=== PATIENT | male | born 1970 | race Caucasian/White ===

== ENCOUNTER 2020-06-14 12:06 | Emergency (ER) | payer OTHER, SELFPAY ==
--- NOTE | ~2020-06-14 | XR_ITS ---
XR hand LT min 3V 06/14/2020 13:07 INDICATION: Puncture wound to base of the thumb PROCEDURE: 4 views left hand COMPARISON: No prior studies for comparison. FINDINGS: Fracture, dislocation or subluxation is not identified. The soft tissues appear within norm al limits. No foreign bodies are identified. IMPRESSION: 1: NO ACUTE BONE OR JOINT ABNORMALITY IDENTIFIED. Reviewed, dictated and finalized at location A.
[2020-06-14 12:13] VITALS: BP 131/62; PULSE 76; RESP 18; TEMP 36.2; O2SAT 98
[2020-06-14] MEDS: TETANUS,DIPHTHERIA,AC PERTUSSIS ADULT (0.5 ML) BOOSTRIX IM (12:46)
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
[2020-06-14 13:16] VITALS: TEMP 36.2
[2020-06-14] MEDS: CEPHALEXIN 500 MG CAPSULE PO (13:45)
[2020-06-14 13:52] VITALS: BP 108/58; PULSE 73; RESP 18; O2SAT 95
== END 2020-06-14 13:54 | disposition home or self-care (01) ==
PROVIDERS: Emergency Provider Emergency Medicine; PCP Family Medicine
DX: S61.432A Puncture wound without foreign body of left hand, initial encounter (principal); W45.8XXA Other foreign body or object entering through skin, initial encounter; Z23 Encounter for immunization; E11.9 Type 2 diabetes mellitus without complications
CPT/HCPCS: 73130; 90471; 90715; 99283; A9270

== ENCOUNTER 2020-06-14 21:57 | Emergency (ER) | payer OTHER, SELFPAY ==
[2020-06-14 21:59] VITALS: BP 146/70; PULSE 67; RESP 18; TEMP 36.2; O2SAT 98
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
[2020-06-14 23:59] VITALS: BP 127/81; PULSE 69; RESP 19; O2SAT 99
== END 2020-06-15 | disposition home or self-care (01) ==
PROVIDERS: Emergency Provider Emergency Medicine; PCP Family Medicine
DX: S61.412A Laceration without foreign body of left hand, initial encounter (principal); W45.8XXA Other foreign body or object entering through skin, initial encounter; E11.9 Type 2 diabetes mellitus without complications
CPT/HCPCS: 12002; 99282

== ENCOUNTER 2020-06-18 11:51 | Emergency (ER) | payer OTHER, SELFPAY ==
[2020-06-18 13:01] VITALS: BP 132/82; PULSE 87; RESP 18; TEMP 36.7; O2SAT 97
--- NOTE | 2020-06-18 14:09 | ED.WOUNDLAC ---
HPI - Wound/Laceration General Chief Complaint: Wound/Laceration Stated Complaint: left palm laceration Time Seen by Provider: 06/18/20 12:39 Source: patient Mode of arrival: ambulatory Limitations: no limitations History of Present Illness HPI narrative: Patient presents with chief complaint of bleeding and suture site from a knife wound that was sutured on Monday. Patient states that he has been taking his oral antibiotics appropriately. He reports increased swelling to the area which is causing some tingling and numbness to his left thumb. Patient states that earlier he had some bleeding from 1 of the sutures that was running down his arm so he presented to the emergency department. Patient denies any fever, chills, nausea, vomiting, diarrhea or any other emergent symptoms. Related Data Allergies Allergy/AdvReac Type Severity Reaction Status Date / Time No Known Allergies Allergy Verified 06/14/20 22:07 Review of Systems Review of Systems: Narrative: CONSTITUTIONAL: Denies fever, chills, or sweats. EYES: Denies visual changes, redness, or discharge. ENT: Denies rhinorrhea, congestion, sore throat, or otalgia. CARDIOVASCULAR: Denies chest pain, palpitations, or edema. RESPIRATORY: Denies cough or dyspnea. GASTROINTESTINAL: Denies abdominal pain, nausea, vomiting, or diarrhea. GENITOURINARY: Denies dysuria or hematuria. SKIN: Reports suture laceration denies rash or itching. MUSCULOSKELETAL: Denies back pain, joint pain, or myalgia. NEUROLOGIC: Denies headache, numbness, dizziness, or weakness. PSYCHIATRIC: Denies anxiety or depression. [facility] Social History Social History Substance use: never Gender identity (if verbalized by the patient): Male Exam Narrative: Exam Narrative: GENERAL: Well-appearing, well-nourished, and in no acute distress. HEAD: Normocephalic, atraumatic. EYES: PERRLA and EOMI. ENT: Nares clear, no rhinorrhea or epistaxis. Mucous membranes moist. NECK: Supple. No adenopathy or masses. CHEST: Speaking in clear sentences without tachypnea. No respiratory distress. EXTREMITIES: Normal range of motion. No edema. SKIN: There are 4 sutures placed to base of left thumb, there is some echymosis and underling hematoma. It is not erythematous, abnormally warm , or any purulent drainage. Very small drop of blood at one of the suture points. Lacerations healing well, but not yet ready for sutures to be removed. Warm, dry, no rash. NEURO: No focal deficits. Alert and oriented x3. PSYCH: Normal mood and affect. Course Vital Signs Vital signs: Vital Signs Temperature 98.0 F 06/18/20 13:01 Pulse Rate 87 06/18/20 13:01 Respiratory Rate 18 06/18/20 13:01 Blood Pressure 132/82 06/18/20 13:01 Pulse Oximetry 97 06/18/20 13:01 Temperature 98.0 F 06/18/20 13:01 Pulse Rate 87 06/18/20 13:01 Respiratory Rate 18 06/18/20 13:01 Blood Pressure 132/82 06/18/20 13:01 Pulse Oximetry 97 06/18/20 13:01 MDM - Wound/Laceration MDM Narrative Medical decision making narrative: There is not any signs of acute infection to the area. There does appear to be underlying hematoma. Patient still has sensation, range of motion and appropriate cap refills of the left thumb. There is no purulent drainage from the wound sites excessive heat or erythema. Appears to be hematoma under area patient encouraged to apply cool compress to allow the body to reabsorb hematoma and elevate and apply light pressure dressing to area. Patient instructed to return to emergency department for suture removal as previously instructed, to continue his antibiotics and return to emergency department if he develops any emergent symptoms. Area was cleaned and light pressure dressing applied. Differential Diagnosis Differential diagnosis: Likely laceration, abscess, abrasion, avulsion of skin and other (Cellulitis, wound dehiscence) Discharge Plan Discharge Clin
== END 2020-06-18 14:27 | disposition home or self-care (01) ==
PROVIDERS: Emergency Provider Emergency Medicine; PCP Family Medicine
DX: Z48.01 Encounter for change or removal of surgical wound dressing (principal); S60.012D Contusion of left thumb without damage to nail, subsequent encounter; W26.0XXD Contact with knife, subsequent encounter
CPT/HCPCS: 99282

== ENCOUNTER 2021-03-07 22:58 | Inpatient (IN) | payer OTHER, SELFPAY ==
--- NOTE | ~2021-03-07 | XR_ITS ---
EXAMINATION: XR chest 2V EXAM DATE: 03/07/2021 23:31 INDICATION: Left-sided chest pain radiating down left arm. TECHNIQUE: Frontal and lateral projections of the chest obtained and reviewed. There is no prior brigitte dy for comparison. FINDINGS: The lungs are clear. There are no pleural effusions. The cardiomediastinal silhouette is within normal limits. There is no pneumothorax suspected. The bones and soft tissues are unremarkab le. IMPRESSION: No acute cardiopulmonary findings. Reviewed, dictated and finalized at location A.
[2021-03-07 23:04] VITALS: BP 181/66; PULSE 87; RESP 18; TEMP 36.3; O2SAT 97
--- NOTE | 2021-03-07 23:06 | ECG_ITS ---
Measurements Intervals [place] Rate: 88 P: [place]: 0 QRS: 38 QRSD: 87 T: 59 QT: 361 QTc: 439 Interpretive Statements SINUS RHYTHM FREQUENT ATRIAL PREMATURE COMPLEXES BORDERLINE ST ABNORMALITY- ANTERIOR LEADS ABNORMAL ECG Electronically Signed On 03-08-2021 7:17:20 CDT by Alen Schroeder D.O.
[2021-03-07 23:22] LABS: Basophils Percent Auto 0.4 % (0.2-1.2); Eosinophils Absolute Auto 0.5 K/mm3 (0-0.3); Eosinophils Percent Auto 5.8 % (0-4.4); Hematocrit 44.9 % (42.0-52.0); Hemoglobin 15.8 g/dL (14.0-18.0); Immature Granulocyte Absolute 0.04 K/mm3 (0.00-0.031); Immature Granulocyte Percent A 0.5 % (0-0.5); Lymphocytes Absolute Auto 2.07 K/mm3 (0.9-3.2); Lymphocytes Percent Auto 26.7 % (18.3-44.2); Mean Corpuscular HGB Conc 35.2 g/dl (32-36); Mean Corpuscular Hemoglobin 31.3 pg (26-34); Mean Corpuscular Volume 88.9 fl (80-100); Monocytes Absolute Auto 0.7 K/mm3 (0.1-0.6); Monocytes Percent Auto 8.5 % (2.6-8.5); Neutrophils Absolute Auto 4.5 K/mm3 (1.3-6.7); Neutrophils Percent Auto 58.1 % (45.5-73.1); Platelet Count Result 213 k/mm3 (150-375); Red Blood Count 5.05 M/mm3 (4.6-6.20); Red Cell Distribution Width 13.2 % (11.5-14.5); White Blood Count 7.7 K/mm3 (4.5-10.0)
[2021-03-07 23:36] LABS: INR 0.9; Prothrombin Time 12.9 Seconds (11.1-14.7)
[2021-03-07 23:37] LABS: Anion Gap 9 mmol/L (8-16); Blood Urea Nitrogen 21 mg/dL (9-20); Calcium 9.2 mg/dL (8.4-10.2); Carbon Dioxide 25 mmol/L (22-30); Chloride 102 mmol/L (98-107); Estimated Glomerular Filt Rate > 60; Glucose 256 mg/dL (75-110); Partial Thromboplastin Time 28.4 SECONDS (22.3-36.8); Potassium 3.7 mmol/L (3.4-5.0); Sodium 136 mmol/L (137-145)
[2021-03-07 23:49] LABS: Troponin I < 0.012 ng/mL (0.000-0.034)
[2021-03-08] VITALS (20 sets, daily range): BP systolic 113–176; BP diastolic 46–85; PULSE 70–103; RESP 15–26; TEMP 36–36.9; O2SAT 92–99; BMI 31.9
--- NOTE | 2021-03-08 00:14 | ED.CHESTPAIN ---
HPI - Chest Pain General Chief Complaint: Chest Pain Stated Complaint: Chest pain, L arm pain Time Seen by Provider: 03/07/21 23:57 Source: RN notes reviewed History of Present Illness HPI narrative: Patient presents to emergency department from home for chest pain. Patient states pain began approximate hour prior to arrival. Pain is located over the left side of the chest with radiation to the left arm and up into the neck described as a pressure. States was associated shortness of breath. States it was worse with walking up the stairs and states that the pain is now improved he denies any previous cardiac history denies any fevers or chills abdominal pain Related Data Allergies Allergy/AdvReac Type Severity Reaction Status Date / Time gemifloxacin [From Factive] Allergy Rash Verified 03/08/21 00:07 Review of Systems Review of Systems: Narrative: Gen.: Denies fevers or chills ENT: Denies congestion Respiratory: Reports shortness of breath CV: See HPI GI: Denies abdominal pain nausea, emesis or diarrhea denies burning, urgency, frequency or hematuria Musculoskeletal: Denies back pain or muscle pain Neuro: Denies numbness, tingling, weakness or focal weakness Skin: Denies rash Except as documented, all other systems reviewed and negative PMFSH Past Medical History Medical History (Updated 03/08/21 @ 01:58 by Facundo Cade DO) Familial hypercholesterolemia History of diabetes mellitus Social History Social History Substance use: never Gender identity (if verbalized by the patient): Male Exam Narrative: Exam Narrative: APPEARANCE: No acute distress, nontoxic, resting in bed EYES: EOMI HEENT: Normocephalic, atraumatic, OMM RESPIRATORY: No respiratory distress Clear to auscultation bilaterally with no rhonchi wheezing or rales. CARDIOVASCULAR: Regular rate and rhythm without murmurs rubs or gallops. ABDOMINAL: Soft, nontender, nondistended, no rebound or guarding MUSCULOSKELETAl: Moves all extremities. No clubbing, cyanosis or edema. NEURO: Awake and alert. Following commands, speech normal, no focal deficits SKIN:: Warm, dry. No rashes lesions or abrasions PSYCHIATRIC: Normal affect/mood, Course Course Emergency Course: Discussed with Dr. Bean presentation work-up agrees with consult at this time. Agrees with plan for aspirin with no further anticoagulation at this time Dr. Garza presentation work-up agrees with admission Discussed with patient and family results of workup and diagnosis. Discussed need for admission. Patient and family understand and agree to current treatment plan Vital Signs Vital signs: Vital Signs Temperature 97.4 F L 03/07/21 23:04 Pulse Rate 87 03/07/21 23:04 Respiratory Rate 18 03/07/21 23:04 Blood Pressure 181/66 H 03/07/21 23:04 Pulse Oximetry 97 03/07/21 23:04 Temperature 97.4 F L 03/07/21 23:04 Pulse Rate 82 03/08/21 00:43 Respiratory Rate 26 H 03/08/21 00:43 Blood Pressure 156/75 H 03/08/21 00:31 Pulse Oximetry 97 03/08/21 00:43 MDM - Chest Pain Lab Data Result diagrams: 03/07/21 23:15 03/07/21 23:15 Labs: Lab Results 03/07/21 03/07/21 03/07/21 Range/Units 23:15 23:15 23:15 WBC 7.7 (4.5-10.0) K/mm3 RBC 5.05 (4.6-6.20) M/mm3 Hgb 15.8 (14.0-18.0) g/dL Hct 44.9 (42.0-52.0) % MCV 88.9 (80-100) fl MCH 31.3 (26-34) pg MCHC 35.2 (32-36) g/dl RDW 13.2 (11.5-14.5) % Plt Count 213 (150-375) k/mm3 MPV 11.0 H (7.4-10.4) fl Immature Gran % (Auto) 0.5 (0-0.5) % Neut % (Auto) 58.1 (45.5-73.1) % Lymph % (Auto) 26.7 (18.3-44.2) % [place] % (Auto) 8.5 (2.6-8.5) % Eos % (Auto) 5.8 H (0-4.4) % Baso % (Auto) 0.4 (0.2-1.2) % Lymph # (Auto) 2.07 (0.9-3.2) K/mm3 [place] # (Auto) 0.7 H (0.1-0.6) K/mm3 Eos # (Auto) 0.5 H (0-0.3) K/mm3 Baso # (Auto) 0.0 (0.0-0.1) K/mm3
--- NOTE | 2021-03-08 00:15 | ECG_ITS ---
Measurements Intervals [place] Rate: 82 P: 35 [place]: 174 QRS: 15 QRSD: 94 T: 40 QT: 366 QTc: 429 Interpretive Statements SINUS RHYTHM ATRIAL PREMATURE COMPLEXES BASELINE ARTIFACT- I, II, III, AVF, V1, V3-V6 BORDERLINE ECG Electronically Signed On 03-08-2021 7:18:26 CDT by Alen Schroeder D.O.
[2021-03-08] MEDS: ASPIRIN 81 MG CHEWABLE TABLET 324 MG PO (00:43)
[2021-03-08] MEDS: MORPHINE SULFATE (*CRX) 2 MG/ML INJ IV PUSH (01:28)
[2021-03-08 02:41] LABS: Troponin I < 0.012 ng/mL (0.000-0.034)
--- NOTE | 2021-03-08 02:45 | ADMGEN ---
This patient, Manfred Bautista, was admitted to IMU Room 206-01. Patient/family oriented to hospital policies and general routines including ID bracelet, bed and alarms, visiting hours, pain management, procedures, bathroom and other care routines, personal items, smoking policy, room service/diet, and visiting hours. Information on how to activate the Rapid Response Team has been discussed. Patient/Family are encouraged to report perceived risks to care and to ask questions if they do not understand what they are told or what they should do.
[2021-03-08 03:27] LABS: Glucose Point of Care 323 mg/dl (65-105)
[2021-03-08 05:46] LABS: Troponin I < 0.012 ng/mL (0.000-0.034)
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
[2021-03-08] MEDS: ATORVASTATIN 20 MG TABLET PO (08:55)
[2021-03-08 09:47] LABS: Alanine Aminotransferase 20 U/L (4-50); Albumin Level 3.7 g/dL (3.5-5.1); Alkaline Phosphatase 39 U/L (38-126); Anion Gap 7 mmol/L (8-16); Aspartate Amino Transferase 20 U/L (17-59); Bilirubin,Total 1.6 mg/dL (0.2-1.3); Blood Urea Nitrogen 15 mg/dL (9-20); Carbon Dioxide 25 mmol/L (22-30); Chloride 104 mmol/L (98-107); Cholesterol 117 mg/dL (0-200); Estimated CRCL calculation 130 ml/min; Estimated Glomerular Filt Rate > 60; Glucose 210 mg/dL (75-110); HDL Direct 33 mg/dL; Potassium 4.1 mmol/L (3.4-5.0); Sodium 136 mmol/L (137-145); Triglycerides 62 mg/dL (<150)
[2021-03-08 09:49] LABS: LDL Cholesterol Direct 69 mg/dL
[2021-03-08] MEDS: ASPIRIN 81 MG CHEWABLE TABLET PO (10:10)
[2021-03-08 11:46] LABS: Free T4 Free Thyroxine Reflex 0.97 ng/dL (0.78-2.19)
[2021-03-08] MEDS: INSULIN ASPART (*BKC) 100 UNITS/ML SUB-Q ×2 (12:42→18:18)
[2021-03-08 13:10] LABS: Glucose Point of Care 282 mg/dl (65-105)
--- NOTE | 2021-03-08 14:01 | PM.CNCAR ---
Assessment and Plan Assessment and plan (1) Chest pain: Code(s): R07.9 - Chest pain, unspecified Status: Acute Assessment and Plan: Exertional chest pain x 2-3 weeks. Associated symptoms of arm pain, neck pain, jaw pain, shortness of breath. Concern for ischemia. -Will pursue ischemic evaluation with left heart catheterization tomorrow. (2) Familial hypercholesterolemia: Code(s): E78.01 - Familial hypercholesterolemia Status: Acute Assessment and Plan: On statin. Lipid panel repeated this morning. HDL 33, LDL 69, total cholesterol 117, triglycerides 62. Continue current statin dose. Monitor as outpatient. (3) Elevated blood pressure reading: Code(s): R03.0 - Elevated blood-pressure reading, without diagnosis of hypertension Status: Acute Assessment and Plan: Scattered elevated measurements - most elevated reading upon presentation to the ED. BP more controlled today with no pharmacologic intervention. Will continue to monitor and initiate antihypertensive if necessary. History of Present Illness History of Present Illness Consult date/time: 03/08/21 14:01 Requesting physician: Facundo Cade DO Consult reason: chest pain Reason For Visit: chest pain Narrative: Date of service 2020: cardiology consultation for chest pain. This is a 50-year-old male with a past medical history of hyperlipidemia and diabetes. He presented to the emergency last night with complaints of chest pain which he has been experiencing for the past 2-3 weeks. He states that for the last couple of weeks he has experienced these episodes of chest pain approximately 4-5 times per week. 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 He says that he took a break from his work and the pain subsided with rest. Since the first occurrence of chest pain the patient states that all subsequent occurrences have been associated with exertion. Last night, he was ascending the stairs in his home when the chest pain began. He says that he laid down in order to alleviate the pain. He also notes that he had some left arm pain and numbness. He also says that he has had associated shortness of breath, neck pain, jaw pain. This particular episode lasted longer than previous episodes and was more intense with patient rating the pain at a 6/10. He states that the pain is sharp. Patient states that by the time he reached the emergency department and was in the waiting room the pain had improved but not completely subsided. Currently, he states that he is feeling mild pressure in his chest that just began while I was conducting this interview. He does not have any associated symptoms at this time. He denies any type of cardiac history but does state that he had a stress test performed about 4 years ago as he was having some upper abdominal pain that turned out to be cholecystitis. He states that the stress test was done in order to rule out any cardiac etiology and was normal. Review of Systems Review of Systems: All systems reviewed & are unremarkable except as noted in HPI and below Constitutional: Constitutional: Denies fatigue and Denies weakness Eyes: Eyes: Denies blurry vision ENT: Reports Normal hearing present Cardiovascular: Cardiovascular: Reports chest pain, Denies lightheadedness and Denies palpitations Respiratory: Respiratory: Reports no additional respiratory complaints, Denies dyspnea and Reports dyspnea on exertion Gastrointestinal: Gastrointestinal: Denies abdominal pain and Denies diarrhea Musculoskeletal: Musculoskeletal: Reports neck pain Neurologic: Denies headache(s) and Reports numbness Endocrine: Endocrine: Denies fatigue Hematologic/Lymphatic: Hematologic/Lymphatic: Denies easy bleeding and Denies easy bruising [facility] Past Medical History Medical History Familial hyperchol
[2021-03-08 14:14] LABS: Total Triiodothyronine (T3) 1.34 NG/ML (0.97-1.69)
[2021-03-08] MEDS: ACETAMINOPHEN 325 MG TABLET 650 MG PO (16:05)
[2021-03-08] MEDS: INSULIN GLARGINE (*BKC) 100 UNITS/ML 30 UNITS SUB-Q (16:05)
[2021-03-08 16:57] LABS: Glucose Point of Care 303 mg/dl (65-105)
--- NOTE | 2021-03-08 17:46 | ECG_ITS ---
Measurements Intervals [place] Rate: 93 P: 55 AK: 175 QRS: 19 QRSD: 89 T: 43 QT: 349 QTc: 436 Interpretive Statements SINUS RHYTHM FREQUENT ATRIAL PREMATURE COMPLEXES ABNORMAL ECG Electronically Signed On 03-09-2021 7:11:08 CDT by Alen Schroeder D.O.
[2021-03-08] MEDS: NITROGLYCERIN SL 0.4 MG TABLET SUBLINGUAL (17:57)
[2021-03-08 19:04] LABS: Troponin I 0.013 ng/mL (0.000-0.034)
[2021-03-08] MEDS: ENOXAPARIN 100 MG/ML SYRINGE 98 MG SUB-Q (19:35)
--- NOTE | 2021-03-08 19:41 | PC.NURSE ---
Patient refused second dose of Nitro stating his pain is, Tolerable and much better. Pain rated 3/10. Patient stated Nitro gave him a headache. Will continue to monitor.
[2021-03-08 21:16] LABS: Glucose Point of Care 291 mg/dl (65-105)
[2021-03-09] VITALS (21 sets, daily range): BP systolic 128–150; BP diastolic 54–89; PULSE 61–98; RESP 12–20; TEMP 36–36.8; O2SAT 94–98
[2021-03-09] MEDS: INSULIN ASPART (*BKC) 100 UNITS/ML SUB-Q ×3 (00:09→13:05)
[2021-03-09 00:12] LABS: Glucose Point of Care 262 mg/dl (65-105)
[2021-03-09 04:53] LABS: Basophils Percent Auto 0.5 % (0.2-1.2); Eosinophils Absolute Auto 0.4 K/mm3 (0-0.3); Eosinophils Percent Auto 5.7 % (0-4.4); Hematocrit 47.8 % (42.0-52.0); Hemoglobin 16.5 g/dL (14.0-18.0); Immature Granulocyte Absolute 0.07 K/mm3 (0.00-0.031); Immature Granulocyte Percent A 0.9 % (0-0.5); Lymphocytes Absolute Auto 1.85 K/mm3 (0.9-3.2); Lymphocytes Percent Auto 24.4 % (18.3-44.2); Mean Corpuscular HGB Conc 34.5 g/dl (32-36); Mean Corpuscular Hemoglobin 30.8 pg (26-34); Mean Corpuscular Volume 89.3 fl (80-100); Mean Platelet Volume 10.9 fl (7.4-10.4); Monocytes Absolute Auto 0.8 K/mm3 (0.1-0.6); Monocytes Percent Auto 10.5 % (2.6-8.5); Neutrophils Absolute Auto 4.4 K/mm3 (1.3-6.7); Platelet Count Result 223 k/mm3 (150-375); Red Blood Count 5.35 M/mm3 (4.6-6.20); Red Cell Distribution Width 13.2 % (11.5-14.5); White Blood Count 7.6 K/mm3 (4.5-10.0)
[2021-03-09 05:06] LABS: Anion Gap 11 mmol/L (8-16); Blood Urea Nitrogen 16 mg/dL (9-20); Calcium 9.3 mg/dL (8.4-10.2); Carbon Dioxide 25 mmol/L (22-30); Chloride 100 mmol/L (98-107); Estimated CRCL calculation 130 ml/min; Estimated Glomerular Filt Rate > 60; Glucose 183 mg/dL (75-110); Potassium 4.2 mmol/L (3.4-5.0); Sodium 136 mmol/L (137-145)
[2021-03-09 05:58] LABS: Glucose Point of Care 222 mg/dl (65-105)
[2021-03-09] MEDS: ASPIRIN 81 MG CHEWABLE TABLET PO (09:02)
[2021-03-09] MEDS: ATORVASTATIN 20 MG TABLET PO (09:03)
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
--- NOTE | 2021-03-09 11:11 | WPDHPUPDATE1 ---
History and Physical Update Update Date/Time: 03/09/21 11:11 History and Physical has been reviewed, including an updated exam of the patient. There are NO changes in the patient's condition. Risks, benefits, and alternatives have been discussed and questions answered. Patient agrees to proceed with procedure.
--- NOTE | 2021-03-09 11:11 | WPDCARDPROC ---
Cardiac Cath Procedure Note Date of procedure:: 03/09/21 Performing physician:: Julio C Aaron MD Procedure Procedure note:: CARDIAC CATHETERIZATION AND PERCUTANEOUS CORONARY INTERVENTION REPORT DATE OF PROCEDURE: 03/09/2021 INDICATION FOR PROCEDURE: Acute coronary syndrome -unstable angina BRIEF CLINICAL HISTORY: 50-year-old male with type 1 diabetes mellitus, dyslipidemia. Patient was admitted to [facility] on 03/08/2021 with complaints of anginal chest pain associated with shortness of breath. His EKG did not show any acute ST segment abnormality. Serial troponins are negative. He was referred for cardiac catheterization in the setting of unstable angina. Benefits and risks of the procedure were discussed with the patient in depth, and informed consent was obtained prior to the procedure. Risks of the procedure include but are not limited to vascular complications including groin hematoma, retroperitoneal bleed, vessel perforation; periprocedural [place], cardiac arrhythmias, stroke, contrast induced nephropathy, and . After discussing all the benefits, risks and alternatives, patient was willing to proceed with the procedure. PROCEDURES PERFORMED: 1. Left heart catheterization- Selective left and right coronary angiogram; left ventriculogram and hemodynamic assessment 2. Percutaneous coronary intervention- a) Balloon angioplasty and stenting of subtotal stenosis in the proximal segment using the 4.0 x 26 mm Biotronik orsiro sirolimus eluting stent with good angiographic result; b) Intravascular ultrasound (IVUS) proximal-mid LAD 3. Selective right common femoral angiogram and deployment of Angio-Seal hemostatic device 4. Moderate sedation-CPT code 12196 MODERATE SEDATION: Midazolam 2 mg; fentanyl 50 mcg. Start time 0936 , Stop time 1101 ; Total [id number] time 83 minutes; Chichi Faith RN was trained observer for moderate sedation. ACCESS SITE: Right common femoral artery PROCEDURE NOTE: After obtaining informed consent, patient was brought to catheterization lab and prepped and draped in a usual sterile manner. After local anesthesia with lidocaine, right common femoral artery access was taken with micropuncture needle followed by insertion of a 5 [place] sheath. Selective left and right coronary angiogram was performed using 5 [place] JL3.5 and JR4 catheters respectively. Orthogonal views were taken. Next, a 5 [place] pigtail catheter was advanced in the LV cavity and was flushed with normal saline. LV pressure measurement was performed. After this, left ventriculogram was performed. The catheter was flushed again, and gradient across the aortic valve was measured on the pullback of the catheter. Selective right common femoral angiogram was performed after PCI followed by successful deployment of Angio-Seal vascular closure device. Patient tolerated procedure well without any immediate procedure related complications. FINDINGS: LEFT MAIN CORONARY: the left main coronary is a medium to large caliber, short vessel, no significant focal stenosis. The vessel bifurcates into LAD and left circumflex branches. LEFT ANTERIOR DESCENDING ARTERY: The LAD is a large caliber vessel with high-grade about 95% stenosis in the lower part of the proximal segment at the origin of the major diagonal branch. The stenosis extends into the mid segment just distal to the origin of the diagonal branch ([place] 1,1,0). The remainder of the mid LAD and distal LAD does not have any significant stenosis, however, slow [place] 1 flow was seen to the high-grade stenosis in the proximal segment. The major diagonal branch is a medium-sized vessel which tapers in the distal segment to a smaller caliber vessel. After PCI, LIN[place]OD 3 flow was restored. LEFT CIRCUMFLEX ARTERY: The left circumflex artery is a large caliber, dominant vessel. It gives rise to diminutive high OM branch; small to medium caliber OM2 branch, medium caliber, tortuous OM3 branch and
--- NOTE | 2021-03-09 11:44 | ECG_ITS ---
Measurements Intervals [place] Rate: 62 P: 26 AK: 204 QRS: 11 QRSD: 88 T: 40 QT: 424 QTc: 432 Interpretive Statements SINUS RHYTHM NORMAL ECG Electronically Signed On 03-09-2021 12:11:34 CDT by Alen Schroeder D.O.
[2021-03-09] MEDS: ACETAMINOPHEN 325 MG TABLET 650 MG PO (12:03)
--- NOTE | 2021-03-09 12:48 | PM.IMPN ---
Progress Note: A&P Assessment and Plan (1) Chest pain: Code(s): R07.9 - Chest pain, unspecified Status: Acute Assessment and Plan: Patient with chest pain with mild exertion but improves with rest. Symptoms appear to be escalating. Risk factors include diabetes and high cholesterol. Symptoms related to ischemia from the LAD stenosis. Cardiology consulted and appreciate thier input. (2) CAD (coronary artery disease): Code(s): I25.10 - Atherosclerotic heart disease of [place] coronary artery without angina pectoris Status: Acute Assessment and Plan: Patient underwent LHC today showing EF 55% and high-grade 95% stenosis of the LAD now s/p balloon angioplasty and stenting with ALKA. Mild plaque seen elsewhere. On DAPT and high dose Lipitor. Will need aggressive life style modifications. (3) Familial hypercholesterolemia: Code(s): E78.01 - Familial hypercholesterolemia Status: Acute Assessment and Plan: LFTs normal. TG 62, TC 117, LDL 69 and HDL 33. Will continue Lipitor at now 80mg daily. (4) Diabetes mellitus type 1: Code(s): E10.9 - Type 1 diabetes mellitus without complications Status: Acute Assessment and Plan: A1c 8.0. Patient diagnosed at age 23. TSH mildly elevated with normal FT4. Insulin pump suspended since he was NPO. He was given lantus once yesterday. About to eat lunch so will resume insulin pump. Repeat TSH as outpatient. (5) Elevated blood pressure reading: Code(s): R03.0 - Elevated blood-pressure reading, without diagnosis of hypertension Status: Acute Assessment and Plan: Blood pressure elevated on admission but probably related to stress and anxiety. Blood pressure elevated this morning felt related to stress but better controlled now. Will continue monitor. (6) DVT prophylaxis: Code(s): Z29.9 - Encounter for prophylactic measures, unspecified Status: Acute Assessment and Plan: SCDs Subjective Date/time seen: 03/09/21 12:48 Interval history: 50yo male with a history of diabetes and hyperlipidemia who presents to the emergency room with complaints of chest pain and found to have 95% LAD stenosis s/p PCI and stent 03/09/21. Patient had severe CP last night that improved with the NTG. He was able to rest overnight. During the procedure, he has similar chest pain symptoms when the aeronautical project engineer was placing the balloon. He feels better today. No further CP. He rarely has low glucose values at home. in the room state patient has trouble with hyperglycemia when he is off his pump. Exam Narrative: Exam Narrative: AF 97.1 136/72 61 15 97% ra Gen - NARD Chest - CTA bilaterally, nml RR CV - RRR S1/S2 Abd - soft,NT/ND, +BS Ext - no pedal edema. cath site clean and dry without bruit. 1+ Rt DP Psych - normal mood and affect. Skin - warm and dry. Objective Data Vital Signs Vital Signs: Vital Signs - 24 hr 03/08/21 14:00 03/08/21 16:00 03/08/21 18:00 Temperature Pulse Rate 83 79 103 H Pulse Rate [Bilateral Pedal (Dorsalis Pedis) Palpation] Respiratory Rate Blood Pressure Pulse Oximetry 03/08/21 18:06 03/08/21 18:17 03/08/21 20:00 Temperature 97.8 F Pulse Rate 87 82 Pulse Rate [Bilateral Pedal (Dorsalis Pedis) Palpation] Respiratory Rate 16 Blood Pressure 176/85 H 147/72 H 113/46 L Pulse Oximetry 97 03/08/21 22:00 03/09/21 00:00 03/09/21 02:00 Temperature 97.2 F L Pulse Rate 80 77 70 Pulse Rate [Bilateral Pedal (Dorsalis Pedis) Palpation] Respiratory Rate 16 Blood Pressure 128/73 Pulse Oximetry 94 03/09/21 04:00 03/09/21 06:00 03/09/21 08:00 Temperature 97.6 F 98.2 F Pulse Rate 74 83 85 Pulse Rate [Bilateral Pedal (Dorsalis Pedis) Palpation] Respiratory Rate 16 12 Blood Pressure 139/66 144/78 H Pulse Oximetry 94 97 03/09/21 11:30 03/09/21 11:45 03/09/21 12:00 Temperature 97.1
[2021-03-09] MEDS: SODIUM CHLORIDE 0.9% IV 1,000 ML 125 ML IV CONT (13:06)
[2021-03-09 13:11] LABS: Glucose Point of Care 252 mg/dl (65-105)
[2021-03-09 17:08] LABS: Glucose Point of Care 332 mg/dl (65-105)
[2021-03-09] MEDS: TICAGRELOR 90 MG TABLET PO (19:54)
[2021-03-09 23:26] LABS: Glucose Point of Care 215 mg/dl (65-105)
[2021-03-10] VITALS (10 sets, daily range): BP systolic 130–155; BP diastolic 55–116; PULSE 66–96; RESP 18–20; TEMP 35.9–36.1; O2SAT 91–99
--- NOTE | 2021-03-10 00:37 | PC.NURSE ---
Patient complains of SOB upon drifting off to sleep. States it wakes him back up and he is not able to get quality sleep. Denies SOB when awake. Denies chest pain. Admits to history of sleep apnea. SpO2 oximeter applied. No desaturations noted with SpO2 monitoring. Patient maintains SpO2 of 99-100%
[2021-03-10 06:27] LABS: Glucose Point of Care 109 mg/dl (65-105)
[2021-03-10] MEDS: ATORVASTATIN 40 MG TABLET 80 MG PO (08:09)
[2021-03-10] MEDS: ASPIRIN 81 MG ENTERIC TABLET PO (08:09)
[2021-03-10] MEDS: TICAGRELOR 90 MG TABLET PO (08:09)
--- NOTE | 2021-03-10 08:18 | PC.NURSE ---
[facility] flyer was given to patient.
[2021-03-10 08:21] LABS: Glucose Point of Care 112 mg/dl (65-105)
--- NOTE | 2021-03-10 10:23 | PM.PNCARD ---
Progress Note: A&P Additional Plan 50-year-old man with: Ischemic heart disease presenting with unstable angina status post successful revascularization yesterday deploying a large caliber drug-eluting stent in the proximal LAD. Patient appears to be stable for discharge today. I am going to add a modest dose of metoprolol to his regimen and arrange for follow-up in the office with Dr. Aaron. Within the next several weeks. 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 Manfred [place] MD [facility] Subjective Date/time seen: 03/10/21 10:23 Interval history: Follow-up visit in this 50-year-old man with: Unstable angina with new diagnosis of coronary artery disease. Patient underwent successful PCI with implant of drug-eluting stent in the proximal LAD yesterday. Patient is doing well this morning no longer having any chest pain and seems to be stable. Dual anti-platelet therapy with aspirin and Brilinta have been started following his PCI. Atorvastatin dosage has been advanced. He was not placed on any beta-tacos therapy for reasons that are not specified. Exam Const: General: comfortable and no acute distress HENMT: Mouth: Yes moist mucous membranes Eyes: Sclera: sclerae normal Pupils: Equal, round and reactive pupils present Neck: Neck: supple and no JVD Thyroid: thyroid normal Resp: Effort & Inspection: normal respiratory effort Auscultation: clear to auscultation bilaterally Cardio: Rate: regular rate Rhythm: regular rhythm Other: S4 is noted no murmur GI: GI Palp: Yes Soft to palpation Auscultation: normal bowel sounds Skin: General skin exam: normal color Neuro: Cognition (Neuro): normal cognition Extrem: General: normal to inspection Other: Right groin puncture site looks fine no hematoma no ecchymosis no bruit Objective Data Vital Signs Vital Signs: Vital Signs - 24 hr 03/09/21 11:30 03/09/21 11:45 03/09/21 12:00 Temperature 36.2 C L Pulse Rate 61 61 63 Pulse Rate [Bilateral Pedal (Dorsalis Pedis) Palpation] 61 61 61 Respiratory Rate 20 20 18 Blood Pressure 149/71 H 141/71 H 148/69 H Pulse Oximetry 96 96 97 03/09/21 12:15 03/09/21 12:30 03/09/21 13:00 Temperature Pulse Rate 71 71 Pulse Rate [Bilateral Pedal (Dorsalis Pedis) Palpation] 61 61 Respiratory Rate 18 15 Blood Pressure 150/89 H 136/72 Pulse Oximetry 97 97 97 03/09/21 13:03 03/09/21 13:33 03/09/21 14:00 Temperature 36.8 C Pulse Rate 72 89 98 Pulse Rate [Bilateral Pedal (Dorsalis Pedis) Palpation] Respiratory Rate 12 15 Blood Pressure 140/56 L 145/55 H Pulse Oximetry 97 98 03/09/21 14:33 03/09/21 15:00 03/09/21 16:00 Temperature 36.6 C Pulse Rate 87 89 73 Pulse Rate [Bilateral Pedal (Dorsalis Pedis) Palpation] Respiratory Rate 12 12 12 Blood Pressure 146/54 H 149/61 H 139/65 Pulse Oximetry 98 98 95 03/09/21 17:00 03/09/21 18:00 03/09/21 20:00 Temperature 36.0 C L Pulse Rate 87 97 81 Pulse Rate [Bilateral Pedal (Dorsalis Pedis) Palpation] Respiratory Rate 12 18 Blood Pressure 145/60 H 134/67 Pulse Oximetry 98 96 03/09/21 22:00 03/10/21 00:00 03/10/21 02:00 Temperature 36.1 C L Pulse Rate 68 81 83 Pulse Rate [Bilateral Pedal (Dorsalis Pedis) Palpation] Respiratory Rate 18 Blood Pressure 135/55 L Pulse Oximetry 98 03/10/21 04:00 03/10/21 06:00 03/10/21 08:00 Temperature 36.0 C L Pulse Rate 74 70 81 Pulse Rate [Bilateral Pedal (Dorsalis Pedis) Palpation] Respiratory Rate 18 Blood Pressure 142/75 H Pulse Oximetry 91 99 03/10/21 08:22 03/10/21 09:46 03/10/21 10:00 Temperature 35.9 C L Pulse Rate 96 80 Pulse Rate [Bilateral Pedal (Dorsalis Pedis) Palpation] Respiratory Rate 20 Blood Pressure 139/116 H 155/70 H Pulse Oximetry 99 Intake/Output Intake/Output: Intake & Output 03/07/21 03/08/21 03/09/21 03/10/21 23:59 23:59 23:59 23:59 In
--- NOTE | 2021-03-10 10:44 | PM.DS ---
DS: Admitting Diagnosis Admitting Diagnosis Admitting Diagnosis: Chest pain DS: Discharge Diagnosis Discharge Diagnosis (1) Chest pain: Code(s): R07.9 - Chest pain, unspecified Status: Acute (2) CAD (coronary artery disease): Code(s): I25.10 - Atherosclerotic heart disease of [place] coronary artery without angina pectoris Status: Acute (3) Familial hypercholesterolemia: Code(s): E78.01 - Familial hypercholesterolemia Status: Acute (4) Diabetes mellitus type 1: Code(s): E10.9 - Type 1 diabetes mellitus without complications Status: Acute (5) Elevated blood pressure reading: Code(s): R03.0 - Elevated blood-pressure reading, without diagnosis of hypertension Status: Acute DS: Summary Hospital Course Reason for hospitalization: 50yo male with Type I DM here for chest pain. Please see H&P for details. Hospital Course: Patient presents with chest pain with mild exertion but improved with rest. Symptoms appear to be escalating. Risk factors include diabetes and high cholesterol. Symptoms felt related to ischemia. Cardiology consulted and patient underwent LHC 03/09/21 showing EF 55% and high-grade 95% stenosis of the LAD now s/p balloon angioplasty and stenting with ALKA. Mild plaque seen elsewhere. On DAPT and high dose Lipitor. Will need aggressive life style modifications. Metoprolol and Lisinopril added. LFTs normal. TG 62, TC 117, LDL 69 and HDL 33. Will continue Lipitor at now 80mg daily. A1c 8.0. Patient diagnosed with DM at age 23. TSH mildly elevated with normal FT4. Insulin pump was suspended since he was NPO and given one dose of Lantus. After the procedure and when he was eating, we resumed his insulin pump. Blood pressure elevated on admission and intermittently throughout his hospital course. Metoprolol and Lisinopril started for elevated BP and for risk factor modification. Patient overall did well and was able to be discharged home on 03/10/21. Status at Discharge Cognitive/behavioral status at discharge: Stable Time Spent with Patient Time attestation: Total time spent providing and/or coordinating discharge services: 40 minutes Time spent: Greater than 30 minutes Exam Narrative: Exam Narrative: AF 96.6 155/70 80 20 99% ra Gen - NARD Chest - CTA bilaterally, nml RR CV - RRR S1/S2 Abd - soft,NT/ND, +BS Ext - no pedal edema. cath site clean and dry without bruit or hematoma. 1+ Rt DP Psych - normal mood and affect. Skin - warm and dry. DS: Data Data Completed and Pending Labs on day of discharge: Labs from last 24 hours 03/10/21 03/10/21 03/09/21 08:07 06:24 23:25 POC Capillary Glucose 112 H 109 H 215 H 03/09/21 03/09/21 17:06 13:02 POC Capillary Glucose 332 H 252 H Discharge Plan Discharge Attending physician on discharge: Tc Zheng Consulting providers: Manfred [place] ; Alen Schroeder ; Antonio Jose ; Cnythia Mcmahan ; Julio C Aaron Discharging Clinician: Tc Zheng Anticipated Discharge Date/Time: 03/10/21 10:52 Patient Disposition: Home, Self-Care Activity: other - see discharge instructions Diet: heart healthy and diabetic Discharge Instructions: Please avoid large gathering, wear face coverings in public and practice social distance. Please check glucose before meals and before bed. Record and bring into your doctor for review. Check blood pressure 1 to 2 times a day. Record and bring into your doctor for review. Call your doctor if your blood pressure is greater than 180/110. Routine Post-Cath instructions per Cardiology Contact your doctor or come to the Emergency Room if you have any type of lightheadedness with standing or other worrisome symptoms. Avoid NSAIDs (ibuprofen, naproxen, Aleve). Tylenol is safe to take. Follow-up with your primary care doctor in 1-2 weeks. Please call for appointment. Follow-up with Cardiology per their instructins.
[2021-03-10 11:47] LABS: Anion Gap 9 mmol/L (8-16); Blood Urea Nitrogen 12 mg/dL (9-20); Calcium 9.6 mg/dL (8.4-10.2); Carbon Dioxide 30 mmol/L (22-30); Chloride 99 mmol/L (98-107); Estimated CRCL calculation 131 ml/min; Estimated Glomerular Filt Rate > 60; Glucose 169 mg/dL (75-110); Potassium 3.8 mmol/L (3.4-5.0); Sodium 138 mmol/L (137-145)
[2021-03-10] MEDS: METOPROLOL SUCCINATE EXT REL 25 MG TABCR PO (11:47)
[2021-03-10] MEDS: lisinopriL 10 MG TABLET PO (12:05)
[2021-03-10 12:20] LABS: Glucose Point of Care 145 mg/dl (65-105)
== END 2021-03-10 12:43 | disposition home or self-care (01) | DRG 247 ==
LOC: ANHED 03-08 01:58 → ANHIMU 03-08 14:49
PROVIDERS: Internal Medicine Cardiovascular Disease; Admitting Provider Internal Medicine; Emergency Provider Emergency Medicine; PCP Family Medicine; Visit Provider Internal Medicine
PROC: 4A023N7 Measurement of Cardiac Sampling and Pressure, Left Heart, Percutaneous Approach (ICD-10-PCS; CPT 93452; principal; 2021-03-09 08:30)
PROC: 4A023N7 Measurement of Cardiac Sampling and Pressure, Left Heart, Percutaneous Approach (ICD-10-PCS; 2021-03-09 08:30)
PROC: 4A023N7 Measurement of Cardiac Sampling and Pressure, Left Heart, Percutaneous Approach (ICD-10-PCS; 2021-03-09 08:30)
PROC: 4A023N7 Measurement of Cardiac Sampling and Pressure, Left Heart, Percutaneous Approach (ICD-10-PCS; 2021-03-09 08:30)
DX: I25.110 Atherosclerotic heart disease of native coronary artery with unstable angina pectoris (principal); R07.9 Chest pain, unspecified; R06.02 Shortness of breath; E78.5 Hyperlipidemia, unspecified; E10.9 Type 1 diabetes mellitus without complications; R03.0 Elevated blood-pressure reading, without diagnosis of hypertension; Z87.891 Personal history of nicotine dependence; Z96.41 Presence of insulin pump (external) (internal)
CPT/HCPCS: 36415; 71046; 80048; 80053; 80061; 82948; 83036; 84439; 84443; 84480; 84484; 85025; 85610; 85730; 92978; 93005; 93458; 96372; 96374; 99285; A9270; C1725; C1753; C1760; C1769; C1874; C1887; C1894; C9600; G0269; G0378; J0583; J1644; J1650; J1815; J2250; J2270; J2405; J3010; J7030; J7040

== ENCOUNTER 2021-05-05 14:06 | Outpatient (CLI) | payer OTHER, SELFPAY ==
--- NOTE | ~2021-05-05 | US_ITS ---
EXAMINATION: US art doppler w press LE BI DATE: 05/05/2021 14:58 INDICATION: Claudication in both lower extremities. TECHNIQUE: Segmental pressures and plethysmographic and Doppler waveforms of the brachial and lower e xtremity arteries were obtained. COMPARISON: None. FINDINGS: Right and left brachial artery pressures of 98 mm Hg and 100 mm Hg, respectively, are concordant (nor mal difference <= 30 mmHg). The right high-thigh pressure index is 1.41 (normal > 1.2). The right ankle-brachial index (CHARITO) is 1 .17 (normal >= 0.9-1.0). The right great toe-brachial index (TBI) is 0.47 (normal >= 0.65). The right lower extremity segmental pressure gradients are normal (normal gradients <= 20-30 mmHg between bernard cent levels on the same leg or the same levels on the two legs). Arterial Doppler waveforms are at le ast triphasic from common femoral artery to popliteal artery and biphasic at the ankle. The left high-thigh pressure index is 1.42. The left CHARITO is 1.08. The left TBI is 0.42. The left lowe r extremity segmental pressure gradients are normal. Arterial Doppler waveforms are at least triphasi c from common femoral artery to popliteal artery and biphasic at the ankle. IMPRESSION: 1. Decreased bilateral TBIs and normal ABIs, consistent with arterial occlusive disease. Note that AB Is may be overestimated if arteries are calcified. Reviewed, dictated and finalized at location A. IMPRESSION: 1. Decreased bilateral TBIs and normal ABIs, consistent with arterial occlusive disease. Note that ABIs may be overestimated if arteries are calcified.
== END 2021-05-05 14:07 | disposition home or self-care (01) ==
PROVIDERS: PCP Family Medicine; Visit Provider Internal Medicine Cardiovascular Disease
DX: I73.9 Peripheral vascular disease, unspecified (principal)
CPT/HCPCS: 93923

== ENCOUNTER 2021-05-24 18:00 | Outpatient (RCR) | payer OTHER, SELFPAY ==
[2021-04-13 15:48] VITALS: PULSE 72
--- NOTE | 2021-04-29 18:12 | PCCPR ---
Manfred has been no call, no show last 5 sessions. Called ishmael and he stated that he has been busy with work and plans to return on Monday.
[2021-05-05 19:22] LABS: Glucose Point of Care 179 mg/dl (65-105)
--- NOTE | 2021-06-10 09:15 | PCCPR ---
Manfred has been no call, no show last two weeks. Called today, no answer, left message to return our call and inform us of his plans to return.
--- NOTE | 2021-06-16 10:24 | PCCPR ---
Manfred has not attended since May 24, has not returned our calls, discharged from program.
== END 2021-06-16 16:24 | disposition home or self-care (01) ==
LOC: ANHCPREHAB 18:00
PROVIDERS: PCP Family Medicine; Visit Provider Internal Medicine Cardiovascular Disease
DX: Z95.5 Presence of coronary angioplasty implant and graft (principal)
CPT/HCPCS: 82948; 93798